=== PATIENT | female | born 1975 | race African-American/Black ===

== ENCOUNTER 2024-10-17 02:17 | Emergency (ER) | payer SELFPAY ==
--- NOTE | ~2024-10-17 | CT_ITS ---
EXAMINATION: CT abdomen pelvis w con DATE: 10/17/2024 04:06 INDICATION: Abdominal pain. TECHNIQUE: Computed tomography (CT) of the abdomen and pelvis was performed with 100 mL Omnipaque 350 intravenous contrast. Automated exposure control and iterative reconstruction technique were employe d. The dose-length product was 886.42 mGy-cm. COMPARISON: None. FINDINGS: The visualized portions of the lung bases demonstrate mild atelectasis. No pleural effusion . The heart size is normal. No pericardial effusion. There is mild intrahepatic biliary duct dilatati on, likely secondary to cholecystectomy. The spleen, pancreas, and adrenal glands are normal. There i s cortical thinning of the kidneys. There are scattered diverticula in the colon. There is fat strand ing around the sigmoid colon with colon wall thickening, consistent with diverticulitis. There are no dilated loops of bowel. The appendix is normal. There are no pathologically enlarged lymph nodes. Th ere is no free intraperitoneal fluid. There are fibroids in the uterus. There is severe thoracic and lumbar spondylosis. IMPRESSION: 1. Acute sigmoid diverticulitis. No perforation or abscess. Reviewed, dictated and finalized at location [facility]
[2024-10-17 02:22] VITALS: BP 139/87; PULSE 102; RESP 17; TEMP 36.6; O2SAT 100
--- NOTE | 2024-10-17 03:04 | ED.GENADULT ---
HPI - General Adult General Chief complaint: Abdominal Pain Stated complaint: urinary symptoms, lower abdominal pain Time Seen by Provider: 10/17/24 02:47 History of Present Illness HPI narrative: Patient 49-year-old female who presents emergency department with chief complaint of abdominal pain. The patient reports she has pain in the suprapubic area feels as though she has bladder spasms the patient is concerned she may have a UTI the patient states she was started on trazodone about a week ago the patient reports that she has no flank pain reports no vomiting Related Data Allergies Allergy/AdvReac Type Severity Reaction Status Date / Time codeine Allergy gi upset Verified 10/17/24 02:26 ibuprofen Allergy stomach Verified 10/17/24 02:26 cramps and nausea Review of Systems Review of Systems: A 10 system review of systems was completed on the patient and is negative except for what is stated in the HPI. Nursing and ancillary documentation was reviewed. Exam Narrative: GENERAL: Well-appearing, well-nourished, and in no acute distress. HEAD: Normocephalic, atraumatic. EYES: PERRLA and EOMI. ENT: Nares clear, no rhinorrhea or epistaxis. Mucous membranes moist. NECK: Supple. CHEST: Clear to auscultation. No respiratory distress. HEART: Regular rate and rhythm. No murmur heard. Normal peripheral pulses. ABDOMEN: Soft, tenderness to palpation in the suprapubic region, nondistended, normal active bowel sounds. EXTREMITIES: Normal range of motion. No edema. SKIN: Warm, dry, no rash. NEURO: No focal deficits. Alert and oriented x3. PSYCH: Normal mood and affect. Course Vital Signs Vital signs: Vital Signs Temperature 36.6 C 10/17/24 02:22 Pulse Rate 102 H 10/17/24 02:22 Respiratory Rate 17 10/17/24 02:22 Blood Pressure 139/87 10/17/24 02:22 Pulse Oximetry 100 10/17/24 02:22 Oxygen Delivery Room Air 10/17/24 02:22 Temperature 36.6 C 10/17/24 02:22 Pulse Rate 68 10/17/24 05:05 Respiratory Rate 14 10/17/24 05:05 Blood Pressure 122/80 10/17/24 05:05 Pulse Oximetry 98 10/17/24 05:05 Oxygen Delivery Room Air 10/17/24 02:22 Medical Decision Making MDM Narrative Medical decision making narrative: CT scan of the abdomen pelvis showed evidence of acute diverticulitis Laboratory studies showed a CBC with white count 8.8 electrolytes are within normal limits urinalysis showed 21-50 white blood cells and 4+ bacteria Differential diagnosis includes appendicitis, diverticulitis, colitis, UTI, pyelonephritis The patient be discharged home on Cipro and Flagyl and given a prescription for Zofran Vital Signs Vital Signs: Vital Signs Temperature 36.6 C 10/17/24 02:22 Pulse Rate 102 H 10/17/24 02:22 Respiratory Rate 17 10/17/24 02:22 Blood Pressure 139/87 10/17/24 02:22 Pulse Oximetry 100 10/17/24 02:22 Oxygen Delivery Room Air 10/17/24 02:22 Temperature 36.6 C 10/17/24 02:22 Pulse Rate 68 10/17/24 05:05 Respiratory Rate 14 10/17/24 05:05 Blood Pressure 122/80 10/17/24 05:05 Pulse Oximetry 98 10/17/24 05:05 Oxygen Delivery Room Air 10/17/24 02:22 Lab Data 10/17/24 03:00 10/17/24 03:00 Labs: Lab Results 10/17/24 10/17/24 10/17/24 Range/Units 03:00 03:05 03:10 WBC 8.8 (4.5-10.0) K/mm3 RBC 3.31 L (4.2-5.4) M/mm3 Hgb 10.4 L (12.0-15.0) g/dL Hct 30.9 L (37.0-47.0) % MCV 93.4 (80-100) fl MCH 31.4 (26-34) pg MCHC 33.7 (32-36) g/dl RDW 13.2 (11.5-14.5) % Plt Count 223 (150-375) k/mm3 MPV 9.4 (7.4-10.4) fl Immature Gran % (Auto) 0.2 (0-0.5) % Neut % (Auto) 71.7 (45.5-73.1) % Lymph % (Auto) 15.4 L (18.3-44.2) % [place] % (Auto) 10.4 H (2.6-8.5) % Eos % (Auto) 2.1 (0-4.4) % Baso % (Auto) 0.2 (0.2-1.2) % Lymph # (Auto) 1.36 (0.9-3.2) K/mm3 [place] # (Auto) 0.9 H (0.1-0.6) K/mm3 Eos # (Auto) 0.2 (0-0.3) K/mm3 Baso # (Auto) 0.0 (0.0-0.1) K/mm3 Abs Immat Gran (auto) 0.02 (0.00-0.031) K/mm3 Absolute Neuts (auto) 6.3 (1.3-6.7) K/mm3 Absolute Nucleated RBC 0.000 (0.0-0.012) K/mm3 Nucleated RBC % 0.0 (0.0-0.2) % Sodium 137 (137-145) mmol/L Potassium 4.1 (3.4-5.0) mmol/L Chloride 105 (98-107) mmol/L Carbon Dioxide 27 (22-30) mmol/L Anion Gap 5 (4-12) mmol/L BUN 20 H (7-17) mg/dL Creatinine 0.66 L (0.7-1.0) mg/dL Estim Creat Clear Calc 102 ml/min Estimated GFR > 60 (59 - ) Glucose 95 (65-110) mg/dL Calcium 8.6 (8.4-10.2) mg/dL Total Bilirubin 0.6 (0.2-1.3) mg/dL AST 25 (14-36) U/L ALT 18 (6-35) U/L Alkaline Phosphatase 62 (38-126) U/L Total Protein 7.0 (6.3-8.2) g/dL Albumin 3.5 (3.5-5.1) g/dL Lipase 58 (23-300) U/L Urine Color Yellow (Yellow) Urine Appearance Cloudy H (Clear) Urine pH 6.0 (5.0-9.0) Ur Specific [place] 1.022 (1.001-1.035) Urine Protein Negative (Negative) mg/dL Urine Glucose (UA) Negative (Negative) mg/dL Urine Ketones Negative (Negative) mg/dL Ur Blood (Man) Negative (Negative) Urine Nitrate Positive H (Negative) Urine Bilirubin Negative (Negative) Urine Urobilinogen 0.2 (<2.0) mg/dL Leukocyte Esterase Rfl 1+ H (Negative) HARDIK/UL Urine RBC 0-2 (0-2) /hpf Urine WBC 21-50 H (0-3) /hpf Ur Squamous Epith Cells Few (Few) /hpf Urine Bacteria 4+ H /hpf Urine Casts 0-2 POC Urine HCG, Qual Negative (Negative) Discharge Plan Discharge Clinical Impression: Diverticulitis, Abdominal pain, UTI (urinary tract infection) Patient Disposition: Home, Self-Care Condition: Stable Instructions: Antibiotic Form, Diverticulitis (ED), Urinary Tract Infection in Women (ED), Abdominal Pain (ED) Patient Language: Turkish Prescriptions: New ciprofloxacin HCl 500 mg tablet 500 mg PO Q12H 10 Days Qty: 20 0RF metronidazole 500 mg tablet 500 mg PO Q8H 10 Days Qty: 30 0RF ondansetron 4 mg tablet,disintegrating 4 mg PO Q8H PRN (Reason: nausea and vomiting) Qty: 10 0RF Follow-up/Referrals: Jm,Michelet Ziegler MD [Primary Care Provider] - Time of Disposition: 06:37
[2024-10-17 03:05] LABS: Basophils Percent Auto 0.2 % (0.2-1.2); Eosinophils Absolute Auto 0.2 K/mm3 (0-0.3); Eosinophils Percent Auto 2.1 % (0-4.4); Hematocrit 30.9 % (37.0-47.0); Hemoglobin 10.4 g/dL (12.0-15.0); Immature Granulocyte Absolute 0.02 K/mm3 (0.00-0.031); Immature Granulocyte Percent A 0.2 % (0-0.5); Lymphocytes Absolute Auto 1.36 K/mm3 (0.9-3.2); Lymphocytes Percent Auto 15.4 % (18.3-44.2); Mean Corpuscular HGB Conc 33.7 g/dl (32-36); Mean Corpuscular Hemoglobin 31.4 pg (26-34); Mean Corpuscular Volume 93.4 fl (80-100); Mean Platelet Volume 9.4 fl (7.4-10.4); Monocytes Absolute Auto 0.9 K/mm3 (0.1-0.6); Monocytes Percent Auto 10.4 % (2.6-8.5); Neutrophils Absolute Auto 6.3 K/mm3 (1.3-6.7); Neutrophils Percent Auto 71.7 % (45.5-73.1); Platelet Count Result 223 k/mm3 (150-375); Red Blood Count 3.31 M/mm3 (4.2-5.4); Red Cell Distribution Width 13.2 % (11.5-14.5); White Blood Count 8.8 K/mm3 (4.5-10.0)
[2024-10-17] MEDS: SODIUM CHLORIDE 0.9% IV 1,000 ML 999 ML IV CONT (03:06)
[2024-10-17] MEDS: ONDANSETRON INJ 4 MG/2 ML VIAL IV PUSH (03:06)
[2024-10-17 03:12] LABS: BEDSIDEPREGUCG Negative (Negative)
[2024-10-17 03:15] LABS: Alanine Aminotransferase 18 U/L (6-35); Albumin Level 3.5 g/dL (3.5-5.1); Alkaline Phosphatase 62 U/L (38-126); Anion Gap 5 mmol/L (4-12); Aspartate Amino Transferase 25 U/L (14-36); Bilirubin,Total 0.6 mg/dL (0.2-1.3); Blood Urea Nitrogen 20 mg/dL (7-17); Calcium 8.6 mg/dL (8.4-10.2); Carbon Dioxide 27 mmol/L (22-30); Chloride 105 mmol/L (98-107); Estimated CRCL calculation 102 ml/min; Estimated Glomerular Filt Rate > 60; Glucose 95 mg/dL (65-110); Lipase 58 U/L (23-300); Potassium 4.1 mmol/L (3.4-5.0); Sodium 137 mmol/L (137-145)
[2024-10-17 03:18] LABS: Add Urine Microscopic? YES; Appearance Urine Cloudy (Clear); Bacteria Urine 4+ /hpf; Bilirubin Urine Negative (Negative); Blood Urine Negative (Negative); Color Urine Yellow (Yellow); Glucose Urine UA Negative (Negative); Ketones Urine Negative (Negative); Leukocyte Esterase Ur 1+ LEU/UL (Negative); Nitrate Urine Positive (Negative); Non Pathogenic Casts 0-2; Protein Urine Negative (Negative); RBC Urine 0-2 /hpf (0-2); Specific Grav Ur 1.022 (1.001-1.035); Squamous Epithelial Cell Urine Few /hpf (Few); Urobilinogen Urine 0.2 mg/dL (<2.0); WBC Urine 21-50 /hpf (0-3)
[2024-10-17 05:05] VITALS: BP 122/80; PULSE 68; RESP 14; O2SAT 98
[2024-10-17] MEDS: MORPHINE SULFATE (*CRX) 4 MG/ML INJ IV PUSH (06:20)
[2024-10-17 06:45] VITALS: BP 134/77; PULSE 82; RESP 15; O2SAT 96
== END 2024-10-17 07:18 | disposition home or self-care (01) ==
PROVIDERS: Emergency Provider Emergency Medicine; PCP Family Medicine
DX: K57.32 Diverticulitis of large intestine without perforation or abscess without bleeding (principal); N39.0 Urinary tract infection, site not specified
CPT/HCPCS: 36415; 74177; 80053; 81001; 81025; 83690; 85025; 87086; 87186; 96361; 96374; 96375; 99284; J2270; J2405; J7030; Q9967